=== PATIENT | female | born 1960 | race Caucasian/White ===

== ENCOUNTER 2021-01-12 15:40 | Outpatient (CLI) | payer BC, SELFPAY ==
--- NOTE | 2021-01-12 15:52 | MM_ITS ---
WS: [id number] BILATERAL SCREENING DIGITAL MAMMOGRAM WITH CAD HISTORY: SCREENING COMPARISON: 12/01/2018 and 08/01/2015 Bilateral CC and MLO views submitted. Computer aided detection analyzed. Breast composition: There are scattered areas of fibroglandular density. No suspicious masses, microc alcifications or architectural distortion. Benign calcifications and intramammary lymph nodes. MM/[place] [id number] IMPRESSION: BI-RADS: 2-Benign FOLLOW UP: 1 Year Follow-up
== END 2021-01-12 15:41 | disposition home or self-care (01) ==
LOC: RADSHAW 15:46
PROVIDERS: PCP Nurse Practitioner; Visit Provider Nurse Practitioner
DX: Z12.31 Encounter for screening mammogram for malignant neoplasm of breast (principal)
CPT/HCPCS: 77067

== ENCOUNTER 2022-01-25 14:55 | Outpatient (CLI) | payer BC, SELFPAY ==
--- NOTE | 2022-01-25 15:05 | MM_ITS ---
WS: [id number] BILATERAL 3D TOMOSYNTHESIS DIGITAL SCREENING MAMMOGRAPHY WITH CAD CLINICAL INFORMATION: SCREENING HISTORY: Screening mammogram. No current complaints. COMPARISON: January 12, 2021 TECHNIQUE: Bilateral CC and MLO views. FINDINGS: Scattered fibroglandular densities bilaterally. Stable intramammary lymph node LEFT breast. Stable miley cent centered calcification RIGHT breast. No suspicious focal mass, asymmetry, calcifications, or arc hitectural distortion. No evidence of malignancy. MM/[place] [id number] IMPRESSION: BI-RADS: 2-Benign FOLLOW UP: 1 Year Follow-up Recommend return to annual screening mammography.
== END 2022-01-25 14:56 | disposition home or self-care (01) ==
LOC: RAD 15:01
PROVIDERS: PCP Nurse Practitioner; Visit Provider Nurse Practitioner
DX: Z12.31 Encounter for screening mammogram for malignant neoplasm of breast (principal)
CPT/HCPCS: 77063; 77067

== ENCOUNTER 2022-02-08 17:58 | Emergency (ER) | payer BC, SELFPAY ==
[2022-02-08 18:46] VITALS: BP 143/109; PULSE 74; RESP 18; TEMP 36.8; O2SAT 99; BMI 38.0
--- NOTE | 2022-02-08 19:03 | W.ED.EXTPRO ---
HPI - Extremity Problem General: Chief complaint: Extremity Problem,Nontraumatic Stated complaint: knots in right leg Time Seen by Provider: 02/08/22 19:03 History of Present Illness: 62-year-old female comes in today for complaints of tenderness to the calf of the right lower leg. Patient reports that she had had recently been traveling and had just gotten home for the last day or 2 and she noticed that she had swelling and tenderness to her right calf. Patient does have some significant varicosities. There is some noticeable redness to the calf area. Minimal to no swelling is noted distally. Review of Systems General: Reports: 10 or more systems reviewed and unremarkable except in HPI and below Resp: Reports: dyspnea GI: Reports: abdominal pain Musc: Reports: extremity pain and extremity swelling Skin/Breast: Reports: erythema Physical Exam Const: COMMON NORMALS: alert HENMT: COMMON NORMALS: normocephalic HEAD & SCALP: normocephalic Neck/C-Spine: COMMON NORMALS: full ROM Chest: COMMONS NORMALS: normal inspection of the chest Resp: COMMON NORMALS: normal respiratory effort and clear to auscultation bilaterally AUSCULTATION: clear to auscultation bilaterally Cardio: COMMON NORMALS: regular rate and regular rhythm RATE: regular rate RHYTHM: regular rhythm : COMMON NORMALS: Yes no CVA tenderness BLADDER/KIDNEY EXAM: Yes no CVA tenderness Back/Pelvis: COMMON NORMALS: no CVA tenderness Extremity: RIGHT LOWER EXTREMITY: Yes lower leg (8 x 4 area of redness to the calf, significant varicosities, congestion) Right lower leg: Yes inspection, Yes palpation and Yes neurovascular exam Neuro: SENSORIUM/ORIENTATION: Yes alert Skin: RASHES: rashes noted (Redness calf) Course Vital Signs: Vital signs: Vital Signs Temperature 98.2 F 02/08/22 18:46 Pulse Rate 74 02/08/22 18:46 Respiratory Rate 18 02/08/22 18:46 Blood Pressure 143/109 02/08/22 18:46 Pulse Oximetry 99 02/08/22 18:46 MDM - Extremity (Nontraumatic) Medical Decision Making 62-year-old female comes in today for complaints of redness and swelling to the calf and right lower leg. On exam there is some vascular congestion, and tenderness to the medial aspect of the left calf. There is also noticeable redness and warmth. Differential diagnosis includes thrombophlebitis, DVT, cellulitis, varicose vein. Ultrasound noted no DVT. Patient has included varicose vein. Reviewed exam with recommendations for treatment for superficial thrombosis with aspirin, ibuprofen, and naproxen. Patient reported understanding agreed to plan. Encourage compression socks, activity as tolerated, and follow-up with primary care for further recommendations. Lab Data : 02/08/22 19:24 Radiology Impressions Venous Duplex 02/08/22 20:09 IMPRESSION: 1. No deep vein thrombosis. 2. Superficial vein thrombosis in the calf. Laboratory Results Sodium 138 mmol/L (136-145) 02/08/22 19:24 Potassium 4.0 mmol/L (3.5-5.1) 02/08/22 19:24 Chloride 101 mmol/L (98-107) 02/08/22 19:24 Carbon Dioxide 27 mmol/L (22-29) 02/08/22 19:24 Anion Gap 14.0 (5-19) 02/08/22 19:24 BUN 16 mg/dL (8-23) 02/08/22 19:24 Creatinine 0.9 mg/dL (0.5-0.9) 02/08/22 19:24 GFR Calculation 63.0 mL/min (90-130) L 02/08/22 19:24 Glucose 85 mg/dL (65-115) 02/08/22 19:24 Calculated Osmolality 286 mOsm/kg (285-295) 02/08/22 19:24 Calcium 9.5 mg/dL (8.5-10.5) 02/08/22 19:24 Total Bilirubin 0.4 mg/dL (0.15-1.2) 02/08/22 19:24 AST 22 U/L (0-32) 02/08/22 19:24 ALT 18 U/L (0-33) 02/08/22 19:24 Alkaline Phosphatase 94 IU/L (35-105) 02/08/22 19:24 Total Protein 7.2 g/dL (6.6-8.7) 02/08/22 19:24 Albumin 4.2 g/dL (3.5-5.2) 02/08/22 19:24 Globulin 3.0 g/dL (1.3-4.6) 02/08/22 19:24 Discharge Plan Discharge Patient Disposition: Home Clinical Impression: Superficial thrombosis of right lower extremity Condition: Stable Discharge Orders: Discharge ED (Routine); Ordered 02/08/22 Ordered By: Michele Cedillo Referrals: Shanti Aguilar NP [Primary Care Provider] - Discharge Diet: Usual diet Discharge Activity: Increase activity as tolerated Patient Instructions: Varicose Veins Activity Restrictions/Additional Instructions: Use warm moist packs to the area for 10-minute intervals 3-4 times a day at least. Take aspirin 325 mg daily. Use ibuprofen or naproxen for pain relief. Drink plenty of water with medications. Follow-up with primary care for further instruction and evaluation. Monitor leg for increased swelling and redness. Coding Level of Care Code ED Network Development Coordinator for Chg Fwd Exam Comprehensive
--- NOTE | 2022-02-08 20:09 | USR_ITS ---
PROCEDURE INFORMATION: Exam: US Duplex Right Lower Extremity Veins, Limited Exam date and time: 02/08/2022 8:22 PM Age: 62 years old Clinical indication: Other: Supero-posterior right calf x 1 week; Prior surgery; Surgery date: 6+ months; Surgery type: Right total knee replacement 2004; Patient HX: Venous duplex imaging was performed in only the right lower extremity. The following venous structures were evaluated: Common femoral vein, profunda vein, proximal portion of the greater saphenous vein, superficial femoral vein, and the popliteal vein. In addition, the posterior tibial and peroneal veins were evaluated. On the right side, the common femoral, superficial femoral, profunda femoral, popliteal, posterior tibial, greater saphenous veins and the peroneal veins were identified and interrogated in the standard fashion. These veins were found to be easily compressible with spontaneous blood flow. No evidence thrombus noted. At the area of pain in the posterior right calf, there are numerous serpinginous thrombosed varicosities, which are quite painful to the patient and do not compress. ; Additional info: R/O dvt TECHNIQUE: Imaging protocol: Real-time Duplex ultrasound of the Right Lower Extremity with 2-D marquez scale, color Doppler flow and spectral waveform analysis with image documentation. Limited exam was focused on the right lower extremity veins. COMPARISON: No relevant prior studies available. FINDINGS: Right deep veins: Unremarkable. The common femoral, femoral, proximal profunda femoral and popliteal veins are patent without thrombus. Normal Doppler waveforms. Normal compressibility and/or augmentation response. Right superficial veins: Thrombosed superficial superficial varicosities in the posterior calf. Soft tissues: Unremarkable. US/[place] [id number] IMPRESSION: 1. No deep vein thrombosis. 2. Superficial vein thrombosis in the calf.
[2022-02-08 20:18] LABS: Alanine Aminotransferase 18 U/L (0-33); Albumin Level 4.2 g/dL (3.5-5.2); Alkaline Phosphatase 94 IU/L (35-105); Aspartate Amino Transferase 22 U/L (0-32); Blood Urea Nitrogen 16 mg/dL (8-23); Calcium 9.5 mg/dL (8.5-10.5); Carbon Dioxide 27 mmol/L (22-29); Chloride 101 mmol/L (98-107); Glucose 85 mg/dL (65-115); Osmolality Calculated 286 mOsm/kg (285-295); Sodium 138 mmol/L (136-145); Total Bilirubin 0.4 mg/dL (0.15-1.2); Total Protein 7.2 g/dL (6.6-8.7)
== END 2022-02-08 21:43 | disposition home or self-care (01) ==
PROVIDERS: Emergency Provider Nurse Practitioner Family; PCP Nurse Practitioner Family
DX: I82.811 Embolism and thrombosis of superficial veins of right lower extremity (principal)
CPT/HCPCS: 80053; 93971; 99283

== ENCOUNTER 2023-02-08 13:46 | Outpatient (CLI) | payer MEDICARE, SELFPAY ==
--- NOTE | 2023-02-08 14:21 | XR_ITS ---
WS: [id number] EXAMINATION: XR knee LT 1-2V [id number] REASON FOR EXAM: PAIN IN LEFT KNEE COMPARISON: None available. ORDER DATE: 02/08/2023 2:33 PM FINDINGS: There are marginal osteophytes associated with the patella and other articular margins with medial an d patellofemoral compartment narrowing. There is no sign of any acute fracture or dislocation. A XR/XR knee LT 1-2V [id number] IMPRESSION: MEDIAL AND PATELLOFEMORAL COMPARTMENT NARROWING WITH OSTEOARTHRITIC CHANGES.
--- NOTE | 2023-02-08 14:21 | XR_ITS ---
WS: [id number] EXAMINATION: XR shoulder RT min 2V* [id number] REASON FOR EXAM: PAIN IN R SHOULDER COMPARISON: None available. ORDER DATE: 02/08/2023 2:33 PM TECHNIQUE: 3 views of the right shoulder were obtained. X-RAY FINDINGS: No fractures or dislocations. Normal motion of the shoulder with internal/external rotation. Minor greater tuberosity degenerative changes. Possible Hill-Sachs defect versus subchondral cysts an d sclerotic change Acromioclavicular joint appears unremarkable. Limited visualization of the adjacent hemithorax is unremarkable. XR/XR shoulder RT min 2V* [id number] IMPRESSION: No fractures or dislocations of the right shoulder.
== END 2023-02-08 13:47 | disposition home or self-care (01) ==
PROVIDERS: PCP Nurse Practitioner Family; Visit Provider Nurse Practitioner Family
DX: M17.12 Unilateral primary osteoarthritis, left knee (principal); M25.762 Osteophyte, left knee; M25.511 Pain in right shoulder; M25.562 Pain in left knee
CPT/HCPCS: 73030; 73560

== ENCOUNTER 2024-04-05 12:25 | Emergency (ER) | payer MEDICARE, SELFPAY ==
[2024-04-05 12:26] VITALS: BP 164/91; PULSE 65; RESP 22; TEMP 36.6; O2SAT 98; BMI 41.1
--- NOTE | 2024-04-05 12:42 | ECG_ITS ---
[facility] Test Date: 2024-04-05 Pat Name: Tyra Bain Department: Room: Gender: Female Civil Estimator: : 1960 Requested By: Maurilio Means Order Number: [id number] Brigido MD: Dougie Hammonds M.D. Measurements Intervals [place] Rate: 58 P: 26 [place]: 187 QRS: -33 QRSD: 126 T: 15 QT: 454 QTc: 449 Interpretive Statements SINUS BRADYCARDIA LEFT AXIS DEVIATION [QRS AXIS < -30] POSSIBLE RIGHT VENTRICULAR CONDUCTION DELAY [RSR (QR) IN V1/V2] POSSIBLE LATERAL MYOCARDIAL INFARCTION , OF INDETERMINATE AGE [30 ms Q WAVE IN I/aVL/V5/V6] Compared to ECG 05/25/2015 06:00:00 Left-axis deviation now present Sinus rhythm no longer present Incomplete right bundle-branch block no longer present Myocardial infarct finding still present Electronically Signed On 04-05-2024 15:38:47 CDT by Dougie Hammonds M.D. [id number] f
--- NOTE | 2024-04-05 12:47 | CT_ITS ---
WS: [id number] CT ABDOMEN PELVIS TECHNIQUE: Contrast-enhanced CT of the abdomen and pelvis with coronal and sagittal reformatted image s. CLINICAL INFORMATION: abd pain COMPARISON: CT 2015 DLP: 1108.[address] scans at [facility] use at least one of these dose optimization techniques: automated e xposure control; mA and/or kV adjustment per patient size (includes targeted exams where dose is matc hed to clinical indication); or iterative reconstruction. FINDINGS: [place] ventral abdominal wall hernia. Hernia mouth measures 8.1 cm. Herniated loop of transverse c olon in the ventral hernia. In addition herniated loop of small bowel. Mild dilatation of the small b owel loop and transverse colon loop without high-grade obstruction. Recommend correlation for reducib ility. Diffuse fatty infiltration of the liver. Normal portal vein and splenic vein. Cholecystectomy clips. Mild intrahepatic biliary ductal dilatation. Evidence of gastric bypass. Fatty atrophy of the pancrea s. Adrenal glands appear normal. No hydronephrosis in either kidney. LEFT renal cortical atrophy. Holly g bases are well aerated. Normal sigmoid colon. Evidence of prior small bowel resection in the lower abdomen. Lumbar scoliosis. CT/CT abdomen pelvis w con* [id number] IMPRESSION: 1. [place] ventral abdominal wall hernia with herniated loops of transverse colon and small bowel with mild dilatation but no evidence of high-grade obstru ction. No associated fluid or induration. Recommend correlation for reducibilit y. 2. Prior cholecystectomy. 3. Gastric bypass. 4. No other acute findings.
--- NOTE | 2024-04-05 12:49 | ED_ITS ---
HPI - Abdominal Pain 2 General: Chief Complaint: Abdominal Pain Stated Complaint: abd pain, Time Seen by Provider: 04/05/24 12:37 Source: patient Mode of arrival: ambulatory Limitations: no limitations History of Present Illness: 64-year-old female history of gastric by pass along with hernia in the past. States that starting last night started having diffuse abdominal pain with some burning sensation into her throat states continue to have diffuse pain today with nausea she denies any vomiting denies any worse improving factors denies any fevers denies any shortness of breath Associated Symptoms: Reports nausea; Denies chills, diarrhea, dysuria, fever(s) and vomiting Related Data Home Medications Medication Instructions Recorded Confirmed calcium-vitamin D3-vitamin K 500 1 tab PO BID 04/05/24 04/05/24 mg-100 unit-40 mcg chewable tablet cetirizine 10 mg tablet 10 mg PO DAILY 04/05/24 04/05/24 cyanocobalamin (vitamin B-12) 100 100 mcg PO BID 04/05/24 04/05/24 mcg tablet (Vitamin B-12) ferrous sulfate 325 mg (65 mg 325 mg PO DAILY 04/05/24 04/05/24 iron) tablet fluticasone propionate 50 2 spray intranasal DAILY PRN 04/05/24 04/05/24 mcg/actuation nasal ALLERGIES spray,suspension hydrochlorothiazide 25 mg tablet 12.5 mg PO DAILY 04/05/24 04/05/24 ibuprofen 600 mg tablet 600 mg PO TID PRN Pain 04/05/24 04/05/24 multivitamin with minerals-folic 1 tab PO DAILY 04/05/24 04/05/24 acid 120 mcg chewable tablet (Women's Multivitamin Gummies) simethicone 80 mg chewable tablet 160 mg PO DAILY PRN GAS 04/05/24 04/05/24 Previous Rx's Medication Instructions Recorded hydrocodone 5 mg-acetaminophen 325 1 tab PO Q6H PRN pain #14 tabs 04/05/24 mg tablet hydrocodone 5 mg-acetaminophen 325 1 tab PO Q6H PRN pain #14 tabs 04/05/24 mg tablet ondansetron 4 mg disintegrating 4 mg PO Q6H PRN nausea and 04/05/24 tablet vomiting #14 tabs Allergies Allergy/AdvReac Type Severity Reaction Status Date / Time No Known Allergies Allergy Verified 04/05/24 12:35 Review of Systems 2 Const: Denies: fever(s), chills, body aches or change in appetite ENMT: Denies: throat pain or dental pain Card: Denies: chest pain Resp: Denies: dyspnea GI: Reports: abdominal pain and nausea; Denies: vomiting or diarrhea : Denies: dysuria Musc: Denies: neck pain or back pain Skin/Breast: Denies: rash Neuro: Denies: headache(s) Physical Exam 2 Const: COMMON NORMALS: no acute distress, patient oriented x3 and healthy appearing HENMT: COMMON NORMALS: normocephalic and atraumatic HEAD & SCALP: n ormocephalic and atraumatic Neck/C-Spine: COMMON NORMALS: full ROM and supple Chest: COMMONS NORMALS: normal inspection of the chest Resp: COMMON NORMALS: normal respiratory effort Cardio: COMMON NORMALS: regular rate, regular rhythm and No murmurs present (Cardio) RATE: regular rate RHYTHM: regular rhythm GI: COMMON NORMALS: Normal to inspection, nondistended, normoactive bowel sounds present, Soft to palpation and no masses PALPATION: Yes Soft to palpation OTHER: diffuse tenderness Extremity: COMMON NORMALS: normal to inspection and full ROM Neuro: COMMON NORMALS: patient oriented x3, moves all extremities and no focal motor deficits Psych: COMMON NORMALS: mental status grossly normal, Normal thought process present and cooperative THOUGHT PROCESS: Normal thought process present Skin: COMMON NORMALS: no rashes or lesions noted and no wounds GENERAL SKIN EXAM: no rashes or lesions noted Course 2 Vital Signs: Vital signs: Vital Signs Temperature 97.9 F 04/05/24 12:26 Pulse Rate 71 04/05/24 15:56 Respiratory Rate 16 04/05/24 15:42 Blood Pressure 170/92 04/05/24 15:56 Pulse Oximetry 99 04/05/24 15:56 Oxygen Delivery Me thod Room Air 04/05/24 15:30 MDM - Abdominal Pain Medical Decision Making Patient presents for diffuse abdominal pain CT showed a ventral hernia has been chronic but no signs of obstruction is easily reduced her blood work here is normal did check troponins are normal as well no signs of ACS we will get her follow-up with surgery she is return if worsening she understands agrees to plan Medical Records I reviewed the patient's medical records. Lab Data I reviewed the patient's lab results. 04/05/24 12:47 04/05/24 12:47 Labs/Radiology: Radiology Impressions Abdomen/Pelvis CT 04/05/24 12:47 IMPRESSION: 1. [place] ventral abdominal wall hernia with herniated loops of transverse colon and small bowel with mild dilatation but no evidence of high-grade obstruction. No associated fluid or induration. Recommend correlation for reducibility. 2. Prior cholecystectomy. 3. Gastric bypass. 4. No other acute findings. Chest X-Ray 04/05/24 12:53 IMPRESSION: No acute lung process is seen. Laboratory Results WBC 7.38 10^3/uL (3.29-11.43) 04/05/24 12:47 RBC 4.83 10^6/uL (3.85-5.65) 04/05/24 12:47 Hgb 13.90 g/dL (11.27-16.99) 04/05/24 12:47 Hct 44.3 % (36-47) 04/05/24 12:47 MCV 91.7 fl (85-98) 04/05/24 12:47 MCH 28.8 pg (27-33) 04/05/24 12:47 MCHC 31.4 g/dL (30-55) 04/05/24 12:47 RDW 13.1 % (12.1-15.1) 04/05/24 12:47 Plt Count 193 10^3/cmm (157-399) 04/05/24 12:47 MPV 13.4 fL (7.4-10.4) H 04/05/24 12:47 Neut % (Auto) 79.8 % 04/05/24 12:47 Lymph % (Auto) 14.4 % 04/05/24 12:47 [place] % (Auto) 3.7 % 04/05/24 12:47 Eos % (Auto) 1.2 % 04/05/24 12:47 Baso % (Auto) 0.5 % 04/05/24 12:47 Neut # (Auto) 5.89 10^3/uL (1.8-7.7) 04/05/24 12:47 Lymph # (Auto) 1.1 10^3/uL (0.8-4.8) 04/05/24 12:47 [place] # (Auto) 0.3 10^3/uL (0.2-0.9) 04/05/24 12:47 Eos # (Auto) 0.1 10^3/uL (0.0-0.8) 04/05/24 12:47 Baso # (Auto) 0.0 10^3/uL (0.0-0.1) 04/05/24 12:47 Nucleated RBC % (auto) 0 % 04/05/24 12:47 Nucleated RBCs # 0.0 /100WBC 04/05/24 12:47 Sodium 140 mmol/L (136-145) 04/05/24 12:47 Potassium 4.2 mmol/L (3.5-5.1) 04/05/24 12:47 Chloride 101 mmol/L (98-107) 04/05/24 12:47 Carbon Dioxide 26 mmol/L (22-29) 04/05/24 12:47 Anion Gap 17.2 (5-19) 04/05/24 12:47 BUN 18 mg/dL (8-23) 04/05/24 12:47 Creatinine 0.7 mg/dL (0.5-0.9) 04/05/24 12:47 GFR Calculation 83.7 mL/min (90-130) L 04/05/24 12:47 Glucose 111 mg/dL (65-115) 04/05/24 12:47 Calculated Osmolality 293 mOsm/kg (285-295) 04/05/24 12:47 Calcium 9.0 mg/dL (8.5-10.5) 04/05/24 12:47 Total Bilirubin 1.2 mg/dL (0.15-1.2) 04/05/24 12:47 AST 232 U/L (0-32) H 04/05/24 12:47 ALT 81 U/L (0-33) H 04/05/24 12:47 Alkaline Phosphatase 207 U/L (35-105) H 04/05/24 12:47 Troponin T Baseline 13 ng/L (0-10) H 04/05/24 12:47 Troponin T 120 Minute 12.72 ng/L (0-10) H 04/05/24 14:30 Delta Troponin T -0.28 ABS# (0-10) L 04/05/24 14:30 Total Protein 6.6 g/dL (6.6-8.7) 04/05/24 12:47 Albumin 3.9 g/dL (3.5-5.2) 04/05/24 12:47 Globulin 2.7 g/dL (1.3-4.6) 04/05/24 12:47 Lipase 47 U/L (13-60) 04/05/24 12:47 All radiology interpretation(s) finalized by discharge EKG Data EKG 1: I personally reviewed and interpreted this EKG as follows: EKG interpretation date: 04/05/24 EKG interpretation time: 12:42 Interpretation: sinus [place] hr [address] or t wave abnormalities qrs 126 qtc 452 Discharge Plan Discharge Patient Disposition: Home Clinical Impression: Abdominal pain Condition: Stable Prescriptions: New hydrocodone-acetaminophen 5-325 mg tablet 1 tab PO Q6H PRN (Reason: pain) Qty: 14 0RF ondansetron 4 mg tablet,disintegrating 4 mg PO Q6H PRN (Reason: nausea and vomiting) Qty: 14 0RF hydrocodone-acetaminophen 5-325 mg tablet 1 tab PO Q6H PRN (Reason: pain) Qty: 14 0RF No Action Vitamin B-12 100 mcg Tablet 100 mcg PO BID cetirizine 10 mg Tablet 10 mg PO DAILY ferrous sulfate 325 mg (65 mg iron) Tablet 325 mg PO DAILY hydrochlorothiazide 25 mg tablet 12.5 mg PO DAILY ibuprofen 600 mg tablet 600 mg PO TID PRN (Reason: Pain) Flonase 50 mcg/actuation [place],Suspension 2 spray INTRANASAL DAILY PRN (Reason: ALLERGIES) Rx Instructions: administer into each nostril Gas-X 80 mg Tablet,Chewable 160 mg PO DAILY PRN (Reason: GAS ) Viactiv 500-100-40 mg-unit-mcg Tablet,Chewable 1 tab PO BID Women's Multivitamin Gummies 120 mcg Tablet,Chewable 1 tab PO DAILY Discharge Orders: Discharge ED (Routine); Ordered 04/05/24 Ordered By: Maurilio Means Referrals: Reid Argueta MD [Physician] - 1-3 days Shanti Aguilar NP [Primary Care Provider] - Discharge Diet: Advance as tolerated Discharge Activity: Resume usual activity Patient Instructions: Abdominal Pain (ED), Opioid Safety Coding Level of Care Code ED Cassandra Developer for Chg Riley
--- NOTE | 2024-04-05 12:53 | XR_ITS ---
WS: [id number] Examination: XR chest 1V portable [id number] Reason for Exam: abd pain Date: April 05, 2024 Comparison: May 26, 2015 Findings: The left ventricle is prominent appearance. The mediastinum is not widened. On today's study there is no evidence of pulmonary edema or large effusion. There is no dense consoli dation. Surgical clips are identified in the upper left abdomen. XR/XR chest 1V portable [id number] IMPRESSION: No acute lung process is seen.
[2024-04-05 12:56] VITALS: RESP 17
[2024-04-05] MEDS: morphine 4 mg/mL SDV 1 mL IVP ×2 (12:56→15:42)
[2024-04-05] MEDS: ondansetron 2 mg/ML SDV 2 mL 4 MG IVP (12:56)
[2024-04-05 13:01] LABS: Basophils % 0.5 %; Eosinophils # 0.1 10^3/uL (0.0-0.8); Eosinophils % 1.2 %; Hematocrit 44.3 % (36-47); Lymphocytes # 1.1 10^3/uL (0.8-4.8); Lymphocytes % 14.4 %; Mean Corpuscular HGB Conc 31.4 g/dL (30-55); Mean Corpuscular Hemoglobin 28.8 pg (27-33); Mean Corpuscular Volume 91.7 fl (85-98); Mean Platelet Volume 13.4 fL (7.4-10.4); Monocytes # 0.3 10^3/uL (0.2-0.9); Monocytes % 3.7 %; Neutrophils # 5.89 10^3/uL (1.8-7.7); Neutrophils % 79.8 %; Nucleated Red Blood Cells % 0 %; Platelet Count 193 10^3/cmm (157-399); Red Blood Count 4.83 10^6/uL (3.85-5.65); Red Cell Distribution Width 13.1 % (12.1-15.1); White Blood Count 7.38 10^3/uL (3.29-11.43)
[2024-04-05 13:07] LABS: Slide Review Slide Review Perform
[2024-04-05 13:22] LABS: Alanine Aminotransferase 81 U/L (0-33); Albumin Level 3.9 g/dL (3.5-5.2); Alkaline Phosphatase 207 U/L (35-105); Anion Gap 17.2 (5-19); Aspartate Amino Transferase 232 U/L (0-32); Blood Urea Nitrogen 18 mg/dL (8-23); Carbon Dioxide 26 mmol/L (22-29); Chloride 101 mmol/L (98-107); Creatinine Clr Calc Pharmacy 83.3914; Globulin 2.7 g/dL (1.3-4.6); Glomerular Filtration Rate 83.7 mL/min (90-130); Glucose 111 mg/dL (65-115); Lipase 47 U/L (13-60); Osmolality Calculated 293 mOsm/kg (285-295); Potassium 4.2 mmol/L (3.5-5.1); Sodium 140 mmol/L (136-145); Total Bilirubin 1.2 mg/dL (0.15-1.2); Total Protein 6.6 g/dL (6.6-8.7)
[2024-04-05 13:24] LABS: Troponin(5th) Baseline 13 ng/L (0-10)
[2024-04-05] MEDS: iohexol 350 mg/mL 500 mL Btl (per mL) IV (13:30)
[2024-04-05 14:30] VITALS: BP 158/89; PULSE 80; O2SAT 97
[2024-04-05] MEDS: lidocaine 2% viscous 15 ML, aluminum-mag hydrox-simethicon 30 ML, sucralfate oral liq 1 GM PO (14:39)
[2024-04-05 14:57] LABS: Troponin 5 2HR 12.72 ng/L (0-10)
[2024-04-05 15:00] LABS: Troponin 5 2HR Delta -0.28 ABS# (0-10)
--- NOTE | 2024-04-05 15:02 | ECG_ITS ---
[facility] Test Date: 2024-04-05 Pat Name: Tyra Bain Department: Room: Gender: Female Complex Care Nurse: : 1960 Requested By: Maurilio Means Order Number: [id number] Brigido MD: Dougie Hammonds M.D. Measurements Intervals [place] Rate: 58 P: 30 [place]: 173 QRS: -26 QRSD: 126 T: 19 QT: 437 QTc: 429 Interpretive Statements SINUS BRADYCARDIA POSSIBLE LEFT ATRIAL ENLARGEMENT [-0.1mV P-WAVE IN V1/V2] BORDERLINE LEFT AXIS DEVIATION [QRS AXIS < -20] POSSIBLE RIGHT VENTRICULAR CONDUCTION DELAY [RSR (QR) IN V1/V2] Compared to ECG 04/05/2024 12:42:02 Myocardial infarct finding no longer present Electronically Signed On 04-05-2024 15:39:00 CDT by Dougie Hammonds M.D. [id number]
[2024-04-05 15:30] VITALS: BP 175/81; PULSE 58; O2SAT 96
[2024-04-05 15:42] VITALS: RESP 16
[2024-04-05 15:56] VITALS: BP 170/92; PULSE 71; O2SAT 99
--- NOTE | 2024-04-06 09:13 | DCPLANNER ---
messaged gen surg for er f/u
== END 2024-04-05 15:58 | disposition home or self-care (01) ==
PROVIDERS: Emergency Provider Emergency Medicine; PCP Nurse Practitioner Family
DX: R10.9 Unspecified abdominal pain (principal); R00.1 Bradycardia, unspecified
CPT/HCPCS: 36415; 71045; 74177; 80053; 83690; 84484; 85025; 93005; 96374; 96375; 96376; 99285; J2270; J2405; Q9967

== ENCOUNTER → 2024-04-17 09:00 | Outpatient (BNVA) | payer MEDICARE, SELFPAY | PROVIDERS: PCP Nurse Practitioner Family; Visit Provider Student in an Organized Health Care Education/Training Program | DX: K28.9 Gastrojejunal ulcer, unspecified as acute or chronic, without hemorrhage or perforation (principal) | CPT/HCPCS: 99204 ==

== ENCOUNTER 2024-05-01 09:53 | Outpatient (CLI) | payer MEDICARE, SELFPAY ==
--- NOTE | 2024-05-01 09:56 | XR_ITS ---
WS: [id number] XR lumbar spine 2-3V* [id number] REASON FOR EXAM: LOW BACK PAIN FINDINGS: Poor definition of the lumbar vertebrae on the lateral view due to body habitus and scoliosis. Severe rotatory dextroscoliosis of the lumbar spine. Exaggerated lumbar lordosis. There are mild biconcave compression deformities of L1-L4, however there does not appear to be a sign ificant vertebral body abnormality. L2 and L3 are not well demonstrated. Moderate of the disc spaces at L1-L2, L4-L5, and L5-S1. Mild anterolisthesis of L4 on L5 and L2 in relation to L1. XR/XR lumbar spine 2-3V* [id number] IMPRESSION: Limited diagnostic quality. Degenerative spondylosis with significant rotatory dextroscoliosis.
== END 2024-05-01 09:54 | disposition home or self-care (01) ==
LOC: RAD 09:55
PROVIDERS: PCP Nurse Practitioner Family; Visit Provider Nurse Practitioner Family
DX: M41.86 Other forms of scoliosis, lumbar region (principal); M48.061 Spinal stenosis, lumbar region without neurogenic claudication
CPT/HCPCS: 72100

== ENCOUNTER 2024-05-14 07:32 | Day surgery (SDC) | payer MEDICARE, SELFPAY ==
[2024-05-14 07:55] VITALS: BP 151/108; PULSE 73; RESP 18; TEMP 36.3; O2SAT 97; BMI 40.6
--- NOTE | 2024-05-14 07:59 | W.PM.OPSUD ---
Surgery/Procedure H&P Update DATE OF PROCEDURE: May 14, 2024 DATE H&P PERFORMED: 04/17/24 H&P UPDATE INFORMATION: I have reviewed H&P completed within last 30 days, I have examined patient prior to procedure and No changes to prior documentation PLANNED PROCEDURE: Operation Date: 05/14/24 08:35 Proposed Procedures p EGD- 49098 , K28.9(Not Applicable) - Kraig Kaye MD
[2024-05-14] MEDS: sodium chloride 0.9% 1,000 ML 30 ML IV (08:02)
--- NOTE | 2024-05-14 08:08 | ANES.PREANE2 ---
Pre-Anesthetic Assessment Height/Weight: Height 1.63 m Weight 107.501 kg Temp Pulse Resp BP Pulse Ox O2 Del Method 97.3 F L 73 18 151/108 97 Room Air 05/14/24 07:55 05/14/24 07:55 05/14/24 07:55 05/14/24 07:55 05/14/24 07:55 05/14/24 07:55 Preop Diagnosis: Ulcer Operation Date: 05/14/24 08:35 Proposed Procedures p EGD- 06672 , K28.9(Not Applicable) - Kraig Kaye MD Familial anesthetic complications: none Was Beta Amanuel taken within 24 hours: N/A Was Clonidine taken within 24 hours: N/A Last intake: Intake Last Liquid Date 05/13/24 Last Liquid Time 23:55 Last Solid Date 05/13/24 Last Solid Time 21:00 Social No alcohol and No tobacco Exam alert, oriented x 3, clear to auscultation bilaterally and regular rate & rhythm Airway Submandibular: within normal limits Cervical ROM: within normal limits Mallampati: Class II Dentition: partials Pulmonary None reported CV/HEM Hypertension history of superficial blood clots None reported Hepatic None reported GI Gastroesophageal Reflux Disease history bowel obstruction with surgery gastric sleeve Metabolic Morbid Obesity Musc/sk Lower Back Pain Neuropsych None reported Anesthetic Plan ASA status: 2 Anesthesia: MAC Risk of > 500 ml blood loss (7ml/kg in children): No Medications/Allergies Home Medications Medication Instructions Recorded Confirmed Last Taken Type calcium-vitamin D3-vitamin K 500 1 tab PO BID 04/05/24 05/10/24 05/13/24 History mg-100 unit-40 mcg chewable tablet cetirizine 10 mg tablet 10 mg PO DAILY 04/05/24 05/10/24 05/13/24 History cyanocobalamin (vitamin B-12) 100 100 mcg PO BID 04/05/24 05/10/24 05/13/24 History mcg tablet (Vitamin B-12) ferrous sulfate 325 mg (65 mg 325 mg PO DAILY 04/05/24 05/10/24 05/13/24 History iron) tablet fluticasone propionate 50 2 spray intranasal DAILY PRN 04/05/24 05/10/24 05/13/24 History mcg/actuation nasal ALLERGIES spray,suspension hydrochlorothiazide 25 mg tablet 12.5 mg PO DAILY 04/05/24 05/10/24 05/13/24 History hydrocodone 5 mg-acetaminophen 325 1 tab PO Q6H PRN pain #14 tabs 04/05/24 05/14/24 04/04/24 Rx mg tablet multivitamin with minerals-folic 1 tab PO BID 04/05/24 05/10/24 05/13/24 History acid 120 mcg chewable tablet (Women's Multivitamin Gummies) ondansetron 4 mg disintegrating 4 mg PO Q6H PRN nausea and 04/05/24 05/10/24 Unknown Rx tablet vomiting #14 tabs simethicone 80 mg chewable tablet 160 mg PO DAILY PRN GAS 04/05/24 05/10/24 05/13/24 History pantoprazole 40 mg tablet,delayed 40 mg PO BID 30 days #60 tabs 04/17/24 05/10/24 05/13/24 Rx release (Protonix) aspirin 325 mg tablet 325 mg PO DAILY 05/10/24 05/10/24 05/09/24 History gabapentin 100 mg capsule 100 mg PO DAILY 05/10/24 05/10/24 05/12/24 History Allergies Allergy/AdvReac Type Severity Reaction Status Date / Time No Known Allergies Allergy Verified 05/10/24 09:17 Current Medications Generic Name Dose Route Start Last Admin Trade Name Freq PRN Reason Stop Dose Admin Sodium Chloride 1,000 mls @ 30 mls/hr 05/14/24 07:45 05/14/24 08:02 Sodium Chloride 0.9% IV 30 mls/hr .Q24H CARMEL Administration PFSH Anesthesia Family History (Updated 04/17/24 @ 09:12 by OMAR Monaco) Mother Cancer Heart disease Diabetes Father Heart disease Glaucoma Social History (Updated 04/17/24 @ 09:11 by OMAR Monaco) Smoking and tobacco/nicotine status: former use of tobacco/nicotine Data Anesthesia Cardiac Studies: No Data to Display
[2024-05-14 08:57] VITALS: BP 128/84; PULSE 78; RESP 20; TEMP 36.2; O2SAT 98
[2024-05-14 09:10] VITALS: BP 141/74; PULSE 72; RESP 18; O2SAT 98
--- NOTE | 2024-05-14 09:35 | ANE.PACU2 ---
Inpatient post-anesthesia follow up: Airway intact: Yes Vital signs: Temperature 97.2 F Pulse Rate 72 Respiratory Rate 18 Blood Pressure 141/74 Pulse Oximetry 98 Oxygen Delivery Me thod Room Air Oxygen Flow Rate 3 Fraction of Inspir ed Oxygen Hydration adequate: Yes Nausea and vomiting: No Pain level: 1 Mental status: Baseline
== END 2024-05-14 09:35 | disposition home or self-care (01) ==
PROVIDERS: PCP Nurse Practitioner Family; Visit Provider Student in an Organized Health Care Education/Training Program
PROC: 0DJ08ZZ Inspection of Upper Intestinal Tract, Via Natural or Artificial Opening Endoscopic (ICD-10-PCS; CPT 43235; principal; 2024-05-14 08:35)
DX: K28.9 Gastrojejunal ulcer, unspecified as acute or chronic, without hemorrhage or perforation (principal); K29.50 Unspecified chronic gastritis without bleeding; I10 Essential (primary) hypertension; K21.9 Gastro-esophageal reflux disease without esophagitis; E66.01 Morbid (severe) obesity due to excess calories; Z68.41 Body mass index [BMI] 40.0-44.9, adult; Z87.891 Personal history of nicotine dependence
CPT/HCPCS: 43235; 43239; 88305; 88342; J7030

== ENCOUNTER → 2024-05-29 09:15 | Outpatient (BNVA) | payer MEDICARE, SELFPAY | PROVIDERS: PCP Nurse Practitioner Family; Visit Provider Student in an Organized Health Care Education/Training Program | DX: Z09 Encounter for follow-up examination after completed treatment for conditions other than malignant neoplasm (principal) | CPT/HCPCS: 99204; 99213 ==

== ENCOUNTER 2024-07-06 13:56 | Outpatient (CLI) | payer MEDICARE, SELFPAY ==
--- NOTE | 2024-07-06 14:04 | MM_ITS ---
WS: [id number] Bilateral screening 3D tomosynthesis digital mammogram, 07/06/2024 2:08 PM Clinical Data: SCREENING Comparison: 01/25/2022, 01/12/2021, 12/01/2018, 08/01/2015, 08/23/2011, 08/12/2009. Findings: No spiculated masses or clustered calcifications are seen. There are no secondary signs of carcinoma . MM/MM scr BI tomosynthesis [id number] Impression: Negative bilateral mammogram unchanged. Recommend annual screening mammograms. BIRADS: 1 - Negative FOLLOW UP: 1 Year Follow-up DENSITY: The breasts are almost entirely fatty. The CAD cloth checker was used
--- NOTE | 2024-07-06 14:04 | XR_ITS ---
WS: [email or web address] SCREENING DEXA SCAN [facility] CLINICAL INFORMATION: SCREENING FOR OSTEOPOROSIS COMPARISON: None. FINDINGS: The L1-L4 bone mineral density measures 1.054 g/cm2. This corresponds to a T score score of -1.0 and Z score of -0.6. Left femoral neck bone mineral density measures 0.690 g/cm2. This corresponds to a T score of -2.5 an d Z score of -2.1. Right femoral neck bone mineral density measures 0.750 g/cm2. This corresponds to a T score -2.0of an d Z score of -1.6. Mean femoral neck bone mineral density measures 0.720 g/cm2. This corresponds to a T score of -2.3 an d Z score of -1.9. XR/XR DEXA axial skeleton* [id number] IMPRESSION: Osteopenia lumbar spine at the lower end of the range. Osteopenia femoral necks at the upper end of the range. Patient's FRAX calculated 10 year probability for major osteoporotic fracture i s 14.1% and osteoporotic hip fracture is 3.7%.
== END 2024-07-06 13:57 | disposition home or self-care (01) ==
LOC: RAD 13:58
PROVIDERS: PCP Nurse Practitioner Family; Visit Provider Nurse Practitioner Family
DX: Z12.31 Encounter for screening mammogram for malignant neoplasm of breast (principal); Z13.820 Encounter for screening for osteoporosis; M81.0 Age-related osteoporosis without current pathological fracture; M85.80 Other specified disorders of bone density and structure, unspecified site
CPT/HCPCS: 77063; 77067; 77080

== ENCOUNTER 2024-12-28 13:37 | Outpatient (CLI) | payer MEDICARE, SELFPAY ==
--- NOTE | 2024-12-28 13:48 | XR_ITS ---
WS: [email or web address] XR foot LT min 3V* [id number] REASON FOR EXAM: PAIN IN L FOOT FINDINGS: No fracture or focal bone lesion. No bone erosion or periosteal reaction. PIP subluxations second through the fifth toes. There is mild to moderate narrowing with mild subchondral sclerosis in the lateral aspect of the fifth TMT joint. Similar arthropathy is seen in the navicular articulation with the medial most cuneiform. Remaining joint spaces of the forefoot, midfoot, and hindfoot are intact and well preserved. Moderate anterior calcaneal enthesophyte. XR/XR foot LT min 3V* [id number] IMPRESSION: PIP subluxations. 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 Calcaneal enthesophyte.
== END 2024-12-28 13:38 | disposition home or self-care (01) ==
PROVIDERS: PCP Nurse Practitioner Family; Visit Provider Nurse Practitioner Family
DX: S93.135A Subluxation of interphalangeal joint of left lesser toe(s), initial encounter (principal); X58.XXXA Exposure to other specified factors, initial encounter; M19.072 Primary osteoarthritis, left ankle and foot; M77.32 Calcaneal spur, left foot
CPT/HCPCS: 73630

== ENCOUNTER → 2025-01-01 07:56 | Outpatient (BNVA) | payer MEDICARE, SELFPAY | PROVIDERS: PCP Nurse Practitioner Family; Visit Provider Podiatrist Foot & Ankle Surgery | DX: I73.9 Peripheral vascular disease, unspecified (principal); L60.3 Nail dystrophy; L84 Corns and callosities | CPT/HCPCS: 11056; 11721; 99203 ==

== ENCOUNTER → 2025-02-06 08:42 | Outpatient (BNVA) | payer MEDICARE, SELFPAY | PROVIDERS: PCP Nurse Practitioner Family; Visit Provider Podiatrist Foot & Ankle Surgery | DX: I73.9 Peripheral vascular disease, unspecified (principal); L60.3 Nail dystrophy; L84 Corns and callosities; M77.41 Metatarsalgia, right foot; M20.42 Other hammer toe(s) (acquired), left foot | CPT/HCPCS: 99214 ==

== ENCOUNTER 2025-06-25 10:47 | Outpatient (CLI) | payer MEDICARE, SELFPAY ==
--- NOTE | 2025-06-25 11:01 | XR_ITS ---
WS: [email or web address] Left foot, 3 views, 06/25/2025 Clinical Data: LEFT FOOT PAIN, FREQUENT FALLS Comparison: Left foot, 12/28/2024 Findings: No fractures or dislocations are seen. No bone destruction or erosion is noted. There is minimal tarsal osteoarthritis unchanged. There are flexion deformities of the left second through fifth toes.. There is a plantar spur. XR/XR foot LT min 3V* [id number] Impression: Stable chronic changes of the left foot.
== END 2025-06-25 10:48 | disposition home or self-care (01) ==
PROVIDERS: PCP Nurse Practitioner Family; Visit Provider Nurse Practitioner Family
DX: M19.072 Primary osteoarthritis, left ankle and foot (principal); R29.6 Repeated falls; M77.32 Calcaneal spur, left foot
CPT/HCPCS: 73630

== ENCOUNTER 2025-07-08 10:24 | Outpatient (CLI) | payer MEDICARE, SELFPAY ==
--- NOTE | 2025-07-08 10:28 | MM_ITS ---
WS: [id number] BILATERAL SCREENING DIGITAL TOMOSYNTHESIS MAMMOGRAM WITH CAD HISTORY: SCREENING COMPARISON: 07/06/2024, 01/25/2022 Bilateral CC and MLO views with tomosynthesis and synthetic mammography submitted. Computer aided detection analyzed. Breast composition: The breasts are almost entirely fatty. No suspicious masses, microcalcifications or architectural distortion. Benign lymph node upper outer quadrant LEFT breast. MM/MM scr BI tomosynthesis [id number] IMPRESSION: BI-RADS: 2 - Benign. FOLLOW UP: 1 Year Follow-up
== END 2025-07-08 10:25 | disposition home or self-care (01) ==
PROVIDERS: PCP Nurse Practitioner Family; Visit Provider Nurse Practitioner Family
DX: Z12.31 Encounter for screening mammogram for malignant neoplasm of breast (principal); R92.313 Mammographic fatty tissue density, bilateral breasts; D36.0 Benign neoplasm of lymph nodes
CPT/HCPCS: 77063; 77067

== ENCOUNTER → 2025-07-23 14:08 | Outpatient (BNVA) | payer MEDICARE, SELFPAY | PROVIDERS: PCP Nurse Practitioner Family; Visit Provider Podiatrist Foot & Ankle Surgery | DX: I73.9 Peripheral vascular disease, unspecified (principal); L60.3 Nail dystrophy; L84 Corns and callosities; M77.41 Metatarsalgia, right foot; M20.42 Other hammer toe(s) (acquired), left foot | CPT/HCPCS: 73630; 99213 ==